=== PATIENT | male | born 1960 | race Caucasian/White ===

== ENCOUNTER → 2016-06-13 | Outpatient (CLI) | payer OTHER | LOC: RAD 15:52 | DX: R05 Cough (principal) ==

== ENCOUNTER → 2016-12-16 | Outpatient (CLI) | payer OTHER | LOC: LAB 17:48 | DX: R22.40 Localized swelling, mass and lump, unspecified lower limb (principal) ==

== ENCOUNTER → 2016-12-17 | Outpatient (CLI) | payer OTHER | LOC: RAD 09:54 | DX: M79.661 Pain in right lower leg (principal); R22.41 Localized swelling, mass and lump, right lower limb ==

== ENCOUNTER → 2017-11-11 | Outpatient (CLI) | payer OTHER | LOC: CARDREHAB 11:40 | DX: G47.33 Obstructive sleep apnea (adult) (pediatric) (principal); R06.83 Snoring; R09.02 Hypoxemia; Z68.35 Body mass index [BMI] 35.0-35.9, adult | CPT/HCPCS: G0399 ==

== ENCOUNTER → 2019-11-10 | Outpatient (CLI) | payer OTHER | LOC: LAB 11:05 | DX: M79.10 Myalgia, unspecified site (principal); R50.9 Fever, unspecified; R19.7 Diarrhea, unspecified; R53.83 Other fatigue; R10.9 Unspecified abdominal pain; Z20.828 Contact with and (suspected) exposure to other viral communicable diseases ==

== ENCOUNTER → 2022-04-12 | Outpatient (CLI) | payer OTHER ==
--- NOTE | 2022-04-14 09:49 | NUR ---
Holter monitor taken off at this time.
== END ==
LOC: RAD 09:01
DX: R00.2 Palpitations (principal)

== ENCOUNTER → 2024-05-27 | Outpatient (CLI) | payer OTHER | LOC: RAD 07:53 | DX: K76.0 Fatty (change of) liver, not elsewhere classified (principal); F10.10 Alcohol abuse, uncomplicated ==